=== PATIENT | female | born 1980 | race Caucasian/White ===

== ENCOUNTER → 2018-10-08 08:51 | Outpatient (CLI) | payer OTHER, SELFPAY ==
[2018-10-08 10:17] LABS: Alanine Aminotransferase 26 IU/L (9-52); Albumin 4.6 g/dL (3.5-5.0); Albumin Globulin Ratio 1.4 (1.0-2.8); Alkaline Phosphatase 69 U/L (38-126); Aspartate Aminotransferase 31 IU/L (14-36); BUN Creatinine Ratio 24.3 (6-22); Bilirubin Total 0.5 mg/dL (0.2-1.3); Blood Urea Nitrogen 17 mg/dL (7-17); Calcium 9.2 mg/dL (8.4-10.2); Carbon Dioxide 27 mmol/L (22-32); Chloride 101 mmol/L (98-107); Estimated Glomerular Filt Rate > 60.0 mL/min (>60); Globulin 3.3 g/dL (1.7-4.1); Glucose 85 mg/dL (70-100); HEMOLYSIS < 15 (0-50); Potassium 4.3 mmol/L (3.4-5.1); Sodium 138 mmol/L (137-145); Total Protein 7.9 g/dL (6.3-8.2)
== END ==
PROVIDERS: PCP Family Medicine; Visit Provider Family Medicine
DX: Z83.3 Family history of diabetes mellitus (principal)
CPT/HCPCS: 36415; 80053

== ENCOUNTER 2019-03-18 09:00 | Outpatient (RCR) | payer OTHER, SELFPAY ==
--- NOTE | 2019-01-01 15:34 | PT.OIE ---
Current Diagnoses Stress incontinence (female) (male) (01/01/19) Past Medical History (Last Updated 10/27/18 @ 09:01 by Ne Mujica DO) Anxiety (Chronic 2014) Hearing loss (Chronic 2015) Tinnitus (Chronic 2015) Chlamydia (Resolved 1998) Genital warts (Resolved 1999) Gestational diabetes (Resolved 2008) Spontaneous vaginal delivery (Resolved) Past Surgical History (Last Reviewed 10/27/18 @ 09:01 by Ne Mujica DO) No history of previous surgery (Resolved 06/25/16) Provider Visit Care Team Role Provider Type Ne Mujica DO Attending Provider Physician Primary Care Provider Specialty: [facility] Address: [address] [place] [address] Email: [email or web address] Physical Therapy Initial Evaluation PT-OP-A Visit Information Start: 01/01/19 06:56 Freq: Status: Active Protocol: Document 01/01/19 13:00 AMB (Rec: 01/01/19 13:15 AMB [id number]) Out-Patient Physical Therapy Visit Information Visit Information Visit Type Initial Evaluation Visit Start Time 13:00 Visit Stop Time 13:44 Total Visit Minutes 44 Visit Number 1 PT-OP-B Current Condition Start: 01/01/19 06:56 Freq: Status: Active Protocol: Document 01/01/19 13:00 AMB (Rec: 01/01/19 13:15 AMB [id number]) Current Condition History of Current Condition Onset Date 2005 Current Complaints leaking urine with running jumping, sneezing History of Current Condition Marilee had her first vaginal delivery in 2005 and had an episiotomy. She had twins in 2008 and also had an episiotomy then. She noticed leaking with running downhill afterward her first delivery and 2 years ago really noticed leaking when she started exercising more. Denies urgency, feeling of falling out, UTI, has maybe a little painful intercourse but it is intermittent. Otherwise feels healthy. Treatment Goals Patient/Caregiver Goals exercise without leaking urine Prior Functional Status Baseline Function- Recreation/Hobbies prior to having children pt was able to exercise without leaking Current Functional Impairments (Reported) Functional Limitations- Recreation/ unable to exercise without Hobbies leaking urine PT-OP-C Subjective Start: 01/01/19 06:56 Freq: Status: Active Protocol: Document 01/01/19 13:00 AMB (Rec: 01/01/19 15:18 AMB [email or web address]) Patient Questionnaires Pelvic Pain and Urgency/Frequency Patient Symptom Scale Pelvic Pain Score 2 PT-OP-I Pelvic Floor Start: 01/01/19 06:56 Freq: Status: Active Protocol: Document 01/01/19 13:00 AMB (Rec: 01/01/19 15:18 AMB [email or web address]) Pelvic Floor Assessment Urine Pelvic Floor Surgery No Leakage Size Large Leakage Cause Cough Exercise Lifting Sneeze Other Leakage Causes with workout leak is large enough to soak maxi pad and then some. Jump rope, running , trampoline are all a problem . Leaks Per Day 10/month Voiding Frequency 6x/day Nocturia 1 Urine Pad Type Maxi Pad Prolapse Cystocele Grade 1 Rectocele Grade 1 SEMG (uV) Baseline 2.6 Quick Contraction 10 10 Second Contraction 5.9 Recruitment Pattern Fair Relaxation Fair Stability of Hold Poor/Slow Contraction Ability Voluntary Contraction Weak Voluntary Relaxation Weak Manual Muscle Testing Left 2 Manual Muscle Testing Right 2 Manual Muscle Testing Anterior 2 Manual Muscle Testing Posterior 3 PT-OP-Q Treatments Start: 01/01/19 06:56 Freq: Status: Active Protocol: Document 01/01/19 13:00 AMB (Rec: 01/01/19 15:33 AMB [email or web address]) Neuro Re-Education Treatment Other Activities 1 Details sEMG quick flicks and long holds Comments instruction in breathing PT-OP-T Assessment and Plan Start: 01/01/19 06:56 Freq: Status: Active Protocol: Document 01/01/19 13:00 AMB (Rec: 01/01/19 15:33 AMB [email or web address]) Physical Therapy Assessment Evaluation Complexity Number of Personal Factors/Comorbidities 0 Number of Body Systems Impaired 1-2 Clinical Presentation at Evaluation Stable Impairments Impairments Functional Activities Strength Goals Two Impairment pelvic floor strength Short Term Goal (STG) Marilee will be able to contract pelvic floor for 10 seconds in standing without compensating with her gluteals. STG Duration 4 weeks Kayak Maker Goal (LTG) Marilee will increase her pelvic floor strength to 4/5 in all planes. LTG Duration 10 weeks One Impairment continence Short Term Goal (STG) Marilee will be able to jog for 10 minutes without leaking. STG Duration 5 weeks Kayak Maker Goal (LTG) Marilee will be able to cough/ sneeze without leaking. LTG Duration 10 weeks Assessment Summary Assessment Marilee attends physical therapy with stress urinary incontinence. She was able to perform a pelvic floor contraction fairly well, but her endurance was poor (only able to hold for 1-2 seconds with good strength). She tended to use her posterior muscles more and did not engage anterior pelvic floor. She will benefit from physical therapy given her high level of strength that her pelvic floor will need to attain for her to be continent . Physical Therapy Plan Frequency and Duration Frequency of Treatment 1x/Week Duration of Treatment 10 weeks Plan of Care Start Date 01/01/19 Plan of Care End Date 03/12/19 Therapeutic Interventions Therapeutic Interventions Home Exercise Program Manual Therapy Neuromuscular Re-education Self-Care/Home Management Therapeutic Activities Therapeutic Exercises Modalities Biofeedback Electric Stimulation Next Visit Focus/Plan Next Note Type Treatment Note Next Visit Plan continue with sEMG, progress into standing as tolerated
--- NOTE | 2019-01-01 15:35 | PT.OPPOC ---
Current Diagnoses Stress incontinence (female) (male) (01/01/19) Provider Visit Care Team Role Provider Type Ne Mujica DO Attending Provider Physician Primary Care Provider Specialty: [facility] Address: [address] [place] [address], [id number] Email: [email or web address] PT-OP-T Assessment and Plan Start: 01/01/19 06:56 Freq: Status: Active Protocol: Document 01/01/19 13:00 AMB (Rec: 01/01/19 15:33 AMB [email or web address]) Physical Therapy Assessment Evaluation Complexity Number of Personal Factors/Comorbidities 0 Number of Body Systems Impaired 1-2 Clinical Presentation at Evaluation Stable Impairments Impairments Functional Activities Strength Goals Two Impairment pelvic floor strength Short Term Goal (STG) Marilee will be able to contract pelvic floor for 10 seconds in standing without compensating with her gluteals. STG Duration 4 weeks Manager Application Development Goal (LTG) Marilee will increase her pelvic floor strength to 4/5 in all planes. LTG Duration 10 weeks One Impairment continence Short Term Goal (STG) Marilee will be able to jog for 10 minutes without leaking. STG Duration 5 weeks Mcc Goal (LTG) Marilee will be able to cough/ sneeze without leaking. LTG Duration 10 weeks Assessment Summary Assessment Marilee attends physical therapy with stress urinary incontinence. She was able to perform a pelvic floor contraction fairly well, but her endurance was poor (only able to hold for 1-2 seconds with good strength). She tended to use her posterior muscles more and did not engage anterior pelvic floor. She will benefit from physical therapy given her high level of strength that her pelvic floor will need to attain for her to be continent . Physical Therapy Plan Frequency and Duration Frequency of Treatment 1x/Week Duration of Treatment 10 weeks Plan of Care Start Date 01/01/19 Plan of Care End Date 03/12/19 Therapeutic Interventions Therapeutic Interventions Home Exercise Program Manual Therapy Neuromuscular Re-education Self-Care/Home Management Therapeutic Activities Therapeutic Exercises Modalities Biofeedback Electric Stimulation Next Visit Focus/Plan Next Note Type Treatment Note Next Visit Plan continue with sEMG, progress into standing as tolerated Plan of Care Dates Plan of Care Start Date 01/01/19 Plan of Care End Date 03/12/19 Please Sign and Return: I have reviewed this Plan of Care and certify that the skilled therapy services above are required to meet the patient?s needs. Physician Signature Date Printed Name and Credentials Clinical Instructor Signature Printed Name and Credentials
--- NOTE | 2019-01-07 16:43 | PT.OTN ---
Current Diagnoses Stress incontinence (female) (male) (01/07/19) Physical Therapy Treatment Note PT-OP-A Visit Information Start: 01/01/19 06:56 Freq: Status: Active Protocol: Document 01/07/19 13:45 AMB (Rec: 01/07/19 16:41 AMB [email or web address]) Out-Patient Physical Therapy Visit Information Visit Information Visit Type Treatment Note Visit Start Time 13:00 Visit Stop Time 13:46 Total Visit Minutes 46 Visit Number 2 PT-OP-B Current Condition Start: 01/01/19 06:56 Freq: Status: Active Protocol: Document 01/01/19 13:00 AMB (Rec: 01/01/19 13:15 AMB [id number]) Current Condition History of Current Condition Onset Date 2005 Current Complaints leaking urine with running jumping, sneezing History of Current Condition Marilee had her first vaginal delivery in 2005 and had an episiotomy. She had twins in 2008 and also had an episiotomy then. She noticed leaking with running downhill afterward her first delivery and 2 years ago really noticed leaking when she started exercising more. Denies urgency, feeling of falling out, UTI, has maybe a little painful intercourse but it is intermittent. Otherwise feels healthy. Treatment Goals Patient/Caregiver Goals exercise without leaking urine Prior Functional Status Baseline Function- Recreation/Hobbies prior to having children pt was able to exercise without leaking Current Functional Impairments (Reported) Functional Limitations- Recreation/ unable to exercise without Hobbies leaking urine PT-OP-C Subjective Start: 01/01/19 06:56 Freq: Status: Active Protocol: Document 01/07/19 13:45 AMB (Rec: 01/07/19 16:41 AMB [email or web address]) OP-PT Subjective Patient Comments Patient Comments Pt is continuing to notice leaking with exercise, but has not really tried to contract pelvic floor while exercising because it is so hard. PT-OP-I Pelvic Floor Start: 01/01/19 06:56 Freq: Status: Active Protocol: Document 01/01/19 13:00 AMB (Rec: 01/01/19 15:18 AMB [email or web address]) Pelvic Floor Assessment Urine Pelvic Floor Surgery No Leakage Size Large Leakage Cause Cough Exercise Lifting Sneeze Other Leakage Causes with workout leak is large enough to soak maxi pad and then some. Jump rope, running , trampoline are all a problem . Leaks Per Day 10/month Voiding Frequency 6x/day Nocturia 1 Urine Pad Type Maxi Pad Prolapse Cystocele Grade 1 Rectocele Grade 1 SEMG (uV) Baseline 2.6 Quick Contraction 10 10 Second Contraction 5.9 Recruitment Pattern Fair Relaxation Fair Stability of Hold Poor/Slow Contraction Ability Voluntary Contraction Weak Voluntary Relaxation Weak Manual Muscle Testing Left 2 Manual Muscle Testing Right 2 Manual Muscle Testing Anterior 2 Manual Muscle Testing Posterior 3 PT-OP-Q Treatments Start: 01/01/19 06:56 Freq: Status: Active Protocol: Document 01/07/19 13:45 AMB (Rec: 01/07/19 16:41 AMB [email or web address]) Therapeutic Exercises Supine Exercises 1 Supine Exercise Name roll in roll out Resistance #2 t band Reps/Minutes 2x10 Standing Exercises 2 Standing Exercise Name long hold with squat Reps/Minutes 10x1 1 Standing Exercise Name quick flicks Comments varied foot position, WBOS and modified tandem Neuro Re-Education Treatment Other Activities 1 Details sEMG quick flicks and long holds Comments instruction in breathing PT-OP-T Assessment and Plan Start: 01/01/19 06:56 Freq: Status: Active Protocol: Document 01/07/19 13:45 AMB (Rec: 01/07/19 16:41 AMB [email or web address]) Physical Therapy Assessment Assessment Summary Assessment Marilee did well with standing exercises, but stabilization with movement was challenging both squats and roll in/roll out. Physical Therapy Plan Next Visit Focus/Plan Next Note Type Treatment Note Next Visit Plan continue with sEMG, progress into standing as tolerated
--- NOTE | 2019-02-11 10:41 | PT.OTN ---
Current Diagnoses Stress incontinence (female) (male) (02/11/19) Physical Therapy Treatment Note PT-OP-A Visit Information Start: 01/01/19 06:56 Freq: Status: Active Protocol: Document 02/11/19 09:30 AMB (Rec: 02/11/19 10:41 AMB [email or web address]) Out-Patient Physical Therapy Visit Information Visit Information Visit Type Treatment Note Visit Start Time 09:30 Visit Stop Time 10:15 Total Visit Minutes 45 Visit Number 3 PT-OP-B Current Condition Start: 01/01/19 06:56 Freq: Status: Active Protocol: Document 01/01/19 13:00 AMB (Rec: 01/01/19 13:15 AMB [id number]) Current Condition History of Current Condition Onset Date 2005 Current Complaints leaking urine with running jumping, sneezing History of Current Condition Marilee had her first vaginal delivery in 2005 and had an episiotomy. She had twins in 2008 and also had an episiotomy then. She noticed leaking with running downhill afterward her first delivery and 2 years ago really noticed leaking when she started exercising more. Denies urgency, feeling of falling out, UTI, has maybe a little painful intercourse but it is intermittent. Otherwise feels healthy. Treatment Goals Patient/Caregiver Goals exercise without leaking urine Prior Functional Status Baseline Function- Recreation/Hobbies prior to having children pt was able to exercise without leaking Current Functional Impairments (Reported) Functional Limitations- Recreation/ unable to exercise without Hobbies leaking urine PT-OP-C Subjective Start: 01/01/19 06:56 Freq: Status: Active Protocol: Document 02/11/19 09:30 AMB (Rec: 02/11/19 10:41 AMB [email or web address]) OP-PT Subjective Patient Comments Patient Comments Pt has been working on pelvic floor exercises, but feels it is difficult after about 5 seconds. She has noticed that she continues to leak especially towards the end of a set of heavy lifting, but she is not leaking the same quantity. PT-OP-I Pelvic Floor Start: 01/01/19 06:56 Freq: Status: Active Protocol: Document 01/01/19 13:00 AMB (Rec: 01/01/19 15:18 AMB [email or web address]) Pelvic Floor Assessment Urine Pelvic Floor Surgery No Leakage Size Large Leakage Cause Cough,Exercise,Lifting,Sneeze Other Leakage Causes with workout leak is large enough to soak maxi pad and then some. Jump rope, running , trampoline are all a problem . Leaks Per Day 10/month Voiding Frequency 6x/day Nocturia 1 Urine Pad Type Maxi Pad Prolapse Cystocele Grade 1 Rectocele Grade 1 SEMG (uV) Baseline 2.6 Quick Contraction 10 10 Second Contraction 5.9 Recruitment Pattern Fair Relaxation Fair Stability of Hold Poor/Slow Contraction Ability Voluntary Contraction Weak Voluntary Relaxation Weak Manual Muscle Testing Left 2 Manual Muscle Testing Right 2 Manual Muscle Testing Anterior 2 Manual Muscle Testing Posterior 3 PT-OP-Q Treatments Start: 01/01/19 06:56 Freq: Status: Active Protocol: Document 02/11/19 09:30 AMB (Rec: 02/11/19 10:41 AMB [email or web address]) Therapeutic Exercises Supine Exercises 2 Supine Exercise Name bridge Reps/Minutes 2x20 Standing Exercises 3 Standing Exercise Name long hold with lunge Reps/Minutes 10x1 2 Standing Exercise Name long hold with squat Reps/Minutes 10x1 1 Standing Exercise Name quick flicks Comments varied foot position, WBOS and modified tandem Other Exercises 2 Other Exercise Name quadruped UE flex with PF Reps/Minutes 10x2 1 Other Exercise Name quadruped LE ext with PF Comments difficult Neuro Re-Education Treatment Other Activities 1 Details sEMG quick flicks and long holds Comments instruction in breathing PT-OP-T Assessment and Plan Start: 01/01/19 06:56 Freq: Status: Active Protocol: Document 02/11/19 09:30 AMB (Rec: 02/11/19 10:41 AMB [email or web address]) Physical Therapy Assessment Assessment Summary Assessment Marilee tolerated squats and lunges better today. Increased muscle activity with biofeedback significantly to max 25, avg 10, baseline 1.5. Encouraged her to add pelvic floor contraction into every day activities. Physical Therapy Plan Next Visit Focus/Plan Next Note Type Treatment Note Next Visit Plan continue with sEMG, progress into standing as tolerated
--- NOTE | 2019-02-18 16:08 | PT.OTN ---
Current Diagnoses Stress incontinence (female) (male) (02/18/19) Physical Therapy Treatment Note PT-OP-A Visit Information Start: 01/01/19 06:56 Freq: Status: Active Protocol: Document 02/18/19 10:15 AMB (Rec: 02/18/19 16:08 AMB [email or web address]) Out-Patient Physical Therapy Visit Information Visit Information Visit Type Treatment Note Visit Start Time 10:15 Visit Stop Time 11:00 Total Visit Minutes 45 Visit Number 4 PT-OP-B Current Condition Start: 01/01/19 06:56 Freq: Status: Active Protocol: Document 01/01/19 13:00 AMB (Rec: 01/01/19 13:15 AMB [id number]) Current Condition History of Current Condition Onset Date 2005 Current Complaints leaking urine with running jumping, sneezing History of Current Condition Marilee had her first vaginal delivery in 2005 and had an episiotomy. She had twins in 2008 and also had an episiotomy then. She noticed leaking with running downhill afterward her first delivery and 2 years ago really noticed leaking when she started exercising more. Denies urgency, feeling of falling out, UTI, has maybe a little painful intercourse but it is intermittent. Otherwise feels healthy. Treatment Goals Patient/Caregiver Goals exercise without leaking urine Prior Functional Status Baseline Function- Recreation/Hobbies prior to having children pt was able to exercise without leaking Current Functional Impairments (Reported) Functional Limitations- Recreation/ unable to exercise without Hobbies leaking urine PT-OP-C Subjective Start: 01/01/19 06:56 Freq: Status: Active Protocol: Document 02/18/19 10:15 AMB (Rec: 02/18/19 16:08 AMB [email or web address]) OP-PT Subjective Patient Comments Patient Comments Pt is noticing an improvement in her long hold ability, she has not noticed any leaking with weight lifting, but is taking it slightly easy due to her shoulder and foot pain. PT-OP-I Pelvic Floor Start: 01/01/19 06:56 Freq: Status: Active Protocol: Document 01/01/19 13:00 AMB (Rec: 01/01/19 15:18 AMB [email or web address]) Pelvic Floor Assessment Urine Pelvic Floor Surgery No Leakage Size Large Leakage Cause Cough,Exercise,Lifting,Sneeze Other Leakage Causes with workout leak is large enough to soak maxi pad and then some. Jump rope, running , trampoline are all a problem . Leaks Per Day 10/month Voiding Frequency 6x/day Nocturia 1 Urine Pad Type Maxi Pad Prolapse Cystocele Grade 1 Rectocele Grade 1 SEMG (uV) Baseline 2.6 Quick Contraction 10 10 Second Contraction 5.9 Recruitment Pattern Fair Relaxation Fair Stability of Hold Poor/Slow Contraction Ability Voluntary Contraction Weak Voluntary Relaxation Weak Manual Muscle Testing Left 2 Manual Muscle Testing Right 2 Manual Muscle Testing Anterior 2 Manual Muscle Testing Posterior 3 PT-OP-Q Treatments Start: 01/01/19 06:56 Freq: Status: Active Protocol: Document 02/18/19 10:15 AMB (Rec: 02/18/19 16:08 AMB [email or web address]) Therapeutic Exercises Supine Exercises 2 Supine Exercise Name bridge Reps/Minutes 2x20 Standing Exercises 4 Standing Exercise Name 10# lift with PF contract Comments 10 3 Standing Exercise Name long hold with lunge Reps/Minutes 10x1 2 Standing Exercise Name long hold with squat Reps/Minutes 10x1 1 Standing Exercise Name quick flicks Comments varied foot position, WBOS and modified tandem PT-OP-T Assessment and Plan Start: 01/01/19 06:56 Freq: Status: Active Protocol: Document 02/18/19 10:15 AMB (Rec: 02/18/19 16:08 AMB [email or web address]) Physical Therapy Assessment Assessment Summary Assessment Marilee continues to improve, although lunges are still hard , any positions with a WBOS are more difficult, but she doesn't really lift that way. Physical Therapy Plan Next Visit Focus/Plan Next Note Type Treatment Note Next Visit Plan continue with sEMG, progress into standing as tolerated
--- NOTE | 2019-03-04 11:37 | PT.OTN ---
Current Diagnoses Stress incontinence (female) (male) (03/04/19) Physical Therapy Treatment Note PT-OP-A Visit Information Start: 01/01/19 06:56 Freq: Status: Active Protocol: Document 03/04/19 11:24 AMB (Rec: 03/04/19 11:33 AMB [email or web address]) Out-Patient Physical Therapy Visit Information Visit Information Visit Type Treatment Note Visit Start Time 10:30 Visit Stop Time 11:15 Total Visit Minutes 45 Visit Number 5 PT-OP-B Current Condition Start: 01/01/19 06:56 Freq: Status: Active Protocol: Document 01/01/19 13:00 AMB (Rec: 01/01/19 13:15 AMB [id number]) Current Condition History of Current Condition Onset Date 2005 Current Complaints leaking urine with running jumping, sneezing History of Current Condition Marilee had her first vaginal delivery in 2005 and had an episiotomy. She had twins in 2008 and also had an episiotomy then. She noticed leaking with running downhill afterward her first delivery and 2 years ago really noticed leaking when she started exercising more. Denies urgency, feeling of falling out, UTI, has maybe a little painful intercourse but it is intermittent. Otherwise feels healthy. Treatment Goals Patient/Caregiver Goals exercise without leaking urine Prior Functional Status Baseline Function- Recreation/Hobbies prior to having children pt was able to exercise without leaking Current Functional Impairments (Reported) Functional Limitations- Recreation/ unable to exercise without Hobbies leaking urine PT-OP-C Subjective Start: 01/01/19 06:56 Freq: Status: Active Protocol: Document 03/04/19 11:24 AMB (Rec: 03/04/19 11:33 AMB [email or web address]) OP-PT Subjective Patient Comments Patient Comments Pt noticed leaking with max lift (150#) deep squat, and with jump rope PT-OP-I Pelvic Floor Start: 01/01/19 06:56 Freq: Status: Active Protocol: Document 01/01/19 13:00 AMB (Rec: 01/01/19 15:18 AMB [email or web address]) Pelvic Floor Assessment Urine Pelvic Floor Surgery No Leakage Size Large Leakage Cause Cough,Exercise,Lifting,Sneeze Other Leakage Causes with workout leak is large enough to soak maxi pad and then some. Jump rope, running , trampoline are all a problem . Leaks Per Day 10/month Voiding Frequency 6x/day Nocturia 1 Urine Pad Type Maxi Pad Prolapse Cystocele Grade 1 Rectocele Grade 1 SEMG (uV) Baseline 2.6 Quick Contraction 10 10 Second Contraction 5.9 Recruitment Pattern Fair Relaxation Fair Stability of Hold Poor/Slow Contraction Ability Voluntary Contraction Weak Voluntary Relaxation Weak Manual Muscle Testing Left 2 Manual Muscle Testing Right 2 Manual Muscle Testing Anterior 2 Manual Muscle Testing Posterior 3 PT-OP-Q Treatments Start: 01/01/19 06:56 Freq: Status: Active Protocol: Document 03/04/19 11:24 AMB (Rec: 03/04/19 11:33 AMB [email or web address]) Therapeutic Exercises Standing Exercises 4 Standing Exercise Name 20# lift with PF contract Comments varied- box lift/ squat, 2 10# bar bells, focus on breathing 3 Standing Exercise Name plyometrics Comments jumping jacks vs jump rope PT-OP-T Assessment and Plan Start: 01/01/19 06:56 Freq: Status: Active Protocol: Document 03/04/19 11:24 AMB (Rec: 03/04/19 11:33 AMB [email or web address]) Physical Therapy Assessment Assessment Summary Assessment Marilee is having a difficult time coordinating pelvic floor with plyometrics .She is fatiguing by the end of her jump rope, so encouraged her to take more breaks for now so that she can remain continent Physical Therapy Plan Next Visit Focus/Plan Next Note Type Treatment Note Next Visit Plan Progress resisted lifting with pelvic floor, as well as breathing
--- NOTE | 2019-03-18 12:00 | PT.OTN ---
Current Diagnoses Stress incontinence (female) (male) (03/18/19) Physical Therapy Treatment Note PT-OP-A Visit Information Start: 01/01/19 06:56 Freq: Status: Active Protocol: Document 03/18/19 09:00 AMB (Rec: 03/18/19 09:46 AMB [id number]) Out-Patient Physical Therapy Visit Information Visit Information Visit Type Treatment Note Visit Start Time 09:00 Visit Stop Time 09:30 Total Visit Minutes 30 Visit Number 6 PT-OP-B Current Condition Start: 01/01/19 06:56 Freq: Status: Active Protocol: Document 01/01/19 13:00 AMB (Rec: 01/01/19 13:15 AMB [id number]) Current Condition History of Current Condition Onset Date 2005 Current Complaints leaking urine with running jumping, sneezing History of Current Condition Marilee had her first vaginal delivery in 2005 and had an episiotomy. She had twins in 2008 and also had an episiotomy then. She noticed leaking with running downhill afterward her first delivery and 2 years ago really noticed leaking when she started exercising more. Denies urgency, feeling of falling out, UTI, has maybe a little painful intercourse but it is intermittent. Otherwise feels healthy. Treatment Goals Patient/Caregiver Goals exercise without leaking urine Prior Functional Status Baseline Function- Recreation/Hobbies prior to having children pt was able to exercise without leaking Current Functional Impairments (Reported) Functional Limitations- Recreation/ unable to exercise without Hobbies leaking urine PT-OP-C Subjective Start: 01/01/19 06:56 Freq: Status: Active Protocol: Document 03/18/19 09:00 AMB (Rec: 03/18/19 09:46 AMB [id number]) OP-PT Subjective Patient Comments Patient Comments Pt can lift most of the time without leaking. She does notice more of an issue when she is on her period (she does not use tampons). PT-OP-I Pelvic Floor Start: 01/01/19 06:56 Freq: Status: Active Protocol: Document 01/01/19 13:00 AMB (Rec: 01/01/19 15:18 AMB [id number]) Pelvic Floor Assessment Urine Pelvic Floor Surgery No Leakage Size Large Leakage Cause Cough,Exercise,Lifting,Sneeze Other Leakage Causes with workout leak is large enough to soak maxi pad and then some. Jump rope, running , trampoline are all a problem . Leaks Per Day 10/month Voiding Frequency 6x/day Nocturia 1 Urine Pad Type Maxi Pad Prolapse Cystocele Grade 1 Rectocele Grade 1 SEMG (uV) Baseline 2.6 Quick Contraction 10 10 Second Contraction 5.9 Recruitment Pattern Fair Relaxation Fair Stability of Hold Poor/Slow Contraction Ability Voluntary Contraction Weak Voluntary Relaxation Weak Manual Muscle Testing Left 2 Manual Muscle Testing Right 2 Manual Muscle Testing Anterior 2 Manual Muscle Testing Posterior 3 PT-OP-Q Treatments Start: 01/01/19 06:56 Freq: Status: Active Protocol: Document 03/18/19 09:00 AMB (Rec: 03/20/19 07:49 AMB [id number]) Therapeutic Exercises Standing Exercises 4 Standing Exercise Name 20# lift with PF contract Comments varied- box lift/ squat, 2 10# bar bells, focus on breathing 3 Standing Exercise Name plyometrics Comments jumping jacks vs jump rope 2 Standing Exercise Name long hold with squat Reps/Minutes 10x1 1 Standing Exercise Name quick flicks Comments varied foot position, WBOS and modified tandem PT-OP-T Assessment and Plan Start: 01/01/19 06:56 Freq: Status: Active Protocol: Document 03/18/19 09:00 AMB (Rec: 03/20/19 07:49 AMB [id number]) Physical Therapy Assessment Goals Two Impairment pelvic floor strength Short Term Goal (STG) Marilee will be able to contract pelvic floor for 10 seconds in standing without compensating with her gluteals. STG Duration MET Group Home Goal (LTG) Marilee will increase her pelvic floor strength to 4/5 in all planes. LTG Duration MET One Impairment continence Short Term Goal (STG) Marilee will be able to jog for 10 minutes without leaking. STG Duration MET Pediatric Pathologist Goal (LTG) Marilee will be able to cough/ sneeze without leaking. LTG Duration MET Assessment Summary Assessment Marilee feels ready to be discharged at this time. She still needs to be mindful of her pelvic floor, especially when she is menstruating, when lifting heavy. Otherwise she feels she is much better than when she started PT. 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 Physical Therapy Plan Discharge Physical Therapy Discharge Reasons Goals Met
--- NOTE | 2019-03-18 12:00 | PT.OPPOC ---
Current Diagnoses Stress incontinence (female) (male) (03/18/19) Visit Care Team Role Provider Type Ne Mujica DO Attending Provider Physician Primary Care Provider Specialty: [facility] Address: [address] [place] [address], [facility], [place], [address] Email: [email or web address] Plan Of Care PT-OP-T Assessment and Plan Start: 01/01/19 06:56 Freq: Status: Active Protocol: Document 03/18/19 09:00 AMB (Rec: 03/20/19 07:49 AMB [id number]) Physical Therapy Assessment Goals Two Impairment pelvic floor strength Short Term Goal (STG) Marilee will be able to contract pelvic floor for 10 seconds in standing without compensating with her gluteals. STG Duration MET Engineer Automated Equipment Goal (LTG) Marilee will increase her pelvic floor strength to 4/5 in all planes. LTG Duration MET One Impairment continence Short Term Goal (STG) Marilee will be able to jog for 10 minutes without leaking. STG Duration MET Engineer Automated Equipment Goal (LTG) Marilee will be able to cough/ sneeze without leaking. LTG Duration MET Assessment Summary Assessment Marilee feels ready to be discharged at this time. She still needs to be mindful of her pelvic floor, especially when she is menstruating, when lifting heavy. Otherwise she feels she is much better than when she started PT. 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 Physical Therapy Plan Frequency and Duration Frequency of Treatment 1x/Week Duration of Treatment 1 week Plan of Care Start Date 03/12/19 Plan of Care End Date 03/19/19 Therapeutic Interventions Therapeutic Interventions Home Exercise Program,Manual Therapy,Neuromuscular Re- education,Self-Care/Home Management,Therapeutic Activities,Therapeutic Exercises Modalities Biofeedback,Electric Stimulation Discharge Physical Therapy Discharge Reasons Goals Met Plan of Care Dates Plan of Care Start Date 03/12/19 Plan of Care End Date 03/19/19
--- NOTE | 2019-03-20 07:50 | PT.OPDS ---
Current Diagnoses Stress incontinence (female) (male) (03/18/19) Visit Care Team Role Provider Type Ne Mujica DO Attending Provider Physician Primary Care Provider Specialty: [facility] Address: [address] [place] [address], [facility], [place], [address] Email: [email or web address] Visit Number Visit Number 6 Discharge Summary PT-OP-B Current Condition Start: 01/01/19 06:56 Freq: Status: Active Protocol: Document 01/01/19 13:00 AMB (Rec: 01/01/19 13:15 AMB [id number]) Current Condition History of Current Condition Onset Date 2005 Current Complaints leaking urine with running jumping, sneezing History of Current Condition Marilee had her first vaginal delivery in 2005 and had an episiotomy. She had twins in 2008 and also had an episiotomy then. She noticed leaking with running downhill afterward her first delivery and 2 years ago really noticed leaking when she started exercising more. Denies urgency, feeling of falling out, UTI, has maybe a little painful intercourse but it is intermittent. Otherwise feels healthy. Treatment Goals Patient/Caregiver Goals exercise without leaking urine Prior Functional Status Baseline Function- Recreation/Hobbies prior to having children pt was able to exercise without leaking Current Functional Impairments (Reported) Functional Limitations- Recreation/ unable to exercise without Hobbies leaking urine PT-OP-C Subjective Start: 01/01/19 06:56 Freq: Status: Active Protocol: Document 03/18/19 09:00 AMB (Rec: 03/18/19 09:46 AMB [id number]) OP-PT Subjective Patient Comments Patient Comments Pt can lift most of the time without leaking. She does notice more of an issue when she is on her period (she does not use tampons). PT-OP-I Pelvic Floor Start: 01/01/19 06:56 Freq: Status: Active Protocol: Document 01/01/19 13:00 AMB (Rec: 01/01/19 15:18 AMB [id number]) Pelvic Floor Assessment Urine Pelvic Floor Surgery No Leakage Size Large Leakage Cause Cough,Exercise,Lifting,Sneeze Other Leakage Causes with workout leak is large enough to soak maxi pad and then some. Jump rope, running , trampoline are all a problem . Leaks Per Day 10/month Voiding Frequency 6x/day Nocturia 1 Urine Pad Type Maxi Pad Prolapse Cystocele Grade 1 Rectocele Grade 1 SEMG (uV) Baseline 2.6 Quick Contraction 10 10 Second Contraction 5.9 Recruitment Pattern Fair Relaxation Fair Stability of Hold Poor/Slow Contraction Ability Voluntary Contraction Weak Voluntary Relaxation Weak Manual Muscle Testing Left 2 Manual Muscle Testing Right 2 Manual Muscle Testing Anterior 2 Manual Muscle Testing Posterior 3 PT-OP-T Assessment and Plan Start: 01/01/19 06:56 Freq: Status: Active Protocol: Document 03/18/19 09:00 AMB (Rec: 03/20/19 07:49 AMB [id number]) Physical Therapy Assessment Goals Two Impairment pelvic floor strength Short Term Goal (STG) Marilee will be able to contract pelvic floor for 10 seconds in standing without compensating with her gluteals. STG Duration MET Learning Manager Goal (LTG) Marilee will increase her pelvic floor strength to 4/5 in all planes. LTG Duration MET One Impairment continence Short Term Goal (STG) Marilee will be able to jog for 10 minutes without leaking. STG Duration MET Halfway Goal (LTG) aMrilee will be able to cough/ sneeze without leaking. LTG Duration MET Assessment Summary Assessment Marilee feels ready to be discharged at this time. She still needs to be mindful of her pelvic floor, especially when she is menstruating, when lifting heavy. Otherwise she feels she is much better than when she started PT. 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 Physical Therapy Plan Discharge Physical Therapy Discharge Reasons Goals Met
== END 2019-03-26 12:50 ==
LOC: PHYS 09:00
PROVIDERS: PCP Family Medicine; Visit Provider Family Medicine
DX: N39.3 Stress incontinence (female) (male) (principal)
CPT/HCPCS: 97110; 97112; 97161

== ENCOUNTER → 2020-02-05 09:47 | Outpatient (CLI) | payer OTHER, SELFPAY ==
[2020-02-05 10:53] LABS: BUN Creatinine Ratio 22.4 (6-22); Blood Urea Nitrogen 17 mg/dL (7-17); Calcium 9.3 mg/dL (8.4-10.2); Carbon Dioxide 29 mmol/L (22-32); Chloride 104 mmol/L (98-107); Estimated Glomerular Filt Rate > 60.0 mL/min (>60); Glucose 88 mg/dL (70-100); HEMOLYSIS < 15 (0-50); Sodium 140 mmol/L (137-145)
== END ==
PROVIDERS: PCP Family Medicine; Referring Provider Family Medicine; Visit Provider Family Medicine
DX: Z86.32 Personal history of gestational diabetes (principal)
CPT/HCPCS: 36415; 80048

== ENCOUNTER → 2022-02-15 10:42 | Outpatient (CLI) | payer OTHER, SELFPAY ==
--- NOTE | 2022-02-15 10:45 | DI.MG.S_ITS ---
BILATERAL DIGITAL DIAGNOSTIC MAMMOGRAM 3D/2D: 02/15/2022 CLINICAL: Right breast pain. Baseline exam. No prior exams were available for comparison. Both breasts are heterogeneously dense, which may obscure small masses (category c / 51-75% glandular tissue). No significant masses, calcifications, or other findings are seen in either breast. IMPRESSION: NEGATIVE There is no abnormality seen in the right breast to correspond with the area of clinical concern seen on thermography in the upper aspect which likely represents normal fibroglandular tissue. There is no mammographic evidence of malignancy. Return to annual mammogram screening schedule is recommended. Based on the Tyrer Cuzick model (a risk assessment model) the patient's lifetime risk is 9.8% and her 10 year risk is 1.5%. According to the ACR, ACS, and NCCN guidelines, an annual breast MRI exam along with mammogram is recommended if the patient's lifetime risk is 20% or greater. This exam was interpreted at Station ID: [id number]. NOTE: For mammograms, a report in lay terms will be sent to the patient. Approximately 15% of breast malignancies will not be visualized mammographically. In the management of a palpable breast mass, a negative mammogram must not discourage biopsy of a clinically suspicious lesion. Electronically Signed By: Franco suazo/:02/15/2022 11:55:13 Entry: - 02/16/2022 12:16:01 letter sent: Normal Exam ACR BI-RADS Category 1: Negative [id number]
== END ==
PROVIDERS: PCP Family Medicine; Referring Provider Family Medicine; Visit Provider Family Medicine
DX: R92.8 Other abnormal and inconclusive findings on diagnostic imaging of breast (principal); N64.4 Mastodynia
CPT/HCPCS: 77066; G0279

== ENCOUNTER → 2022-03-17 11:42 | Outpatient (CLI) | payer OTHER, SELFPAY ==
[2022-03-17 13:10] LABS: Add Manual Diff / Slide Review NO; Basophils Absolute Auto 0 /uL (0-100); Basophils Percent Auto 0.6 % (0-2); Eosinophils Absolute Auto 200 /uL (0-450); Eosinophils Percent Auto 4.3 % (2-4); Hematocrit 40.7 % (36-46); Hemoglobin 13.9 g/dL (12.0-16.0); Lymphocytes Absolute Auto 1600 /uL (1100-4500); Lymphocytes Percent Auto 40.2 % (25-40); Mean Corpuscular HGB Conc 34.2 % (30-36); Mean Corpuscular Hemoglobin 31.4 PG (26-34); Mean Corpuscular Volume 91.9 fL (80-100); Monocytes Absolute Auto 300 /uL (0-900); Monocytes Percent Auto 8.1 % (3-14); Neutrophils Absolute Auto 1900 /uL (1500-7000); Neutrophils Percent Auto 46.8 % (50-75); Platelet Count 175 X10^3/uL (150-400); Red Blood Cell Count 4.43 X10^6/uL (4.0-5.2); Red Cell Distribution Width 12.6 % (11.6-14.8)
[2022-03-17 13:46] LABS: Alanine Aminotransferase 48 IU/L (<35); Albumin 4.3 g/dL (3.5-5.0); Albumin Globulin Ratio 1.3 (1.0-2.8); Alkaline Phosphatase 58 U/L (38-126); Aspartate Aminotransferase 47 IU/L (14-36); BUN Creatinine Ratio 17.1 (6-22); Bilirubin Total 0.3 mg/dL (0.2-1.3); Blood Urea Nitrogen 13 mg/dL (7-17); Calcium 8.9 mg/dL (8.4-10.2); Carbon Dioxide 29 mmol/L (22-32); Chloride 103 mmol/L (98-107); Cholesterol 173 mg/dL (140-199); Estimated Glomerular Filt Rate > 60 mL/min (>60); Globulin 3.3 g/dL (1.7-4.1); Glucose 92 mg/dL (70-100); HDL Cholesterol 59 mg/dL (40-60); HEMOLYSIS < 15 (0-50); LDL Cholesterol Calculated 102 mg/dL (<100); Potassium 4.1 mmol/L (3.4-5.1); Sodium 141 mmol/L (137-145); Total Protein 7.6 g/dL (6.3-8.2); Triglycerides 62 mg/dL (35-150)
== END ==
PROVIDERS: PCP Family Medicine; Referring Provider Family Medicine; Visit Provider Family Medicine
DX: Z00.00 Encounter for general adult medical examination without abnormal findings (principal); Z13.1 Encounter for screening for diabetes mellitus; Z13.6 Encounter for screening for cardiovascular disorders
CPT/HCPCS: 36415; 80053; 80061; 84443; 85025

== ENCOUNTER → 2022-05-25 16:32 | Outpatient (CLI) | payer OTHER, SELFPAY ==
[2022-05-25 18:12] LABS: Hemoglobin A1C% w Est Avg Glu 5.4 % (4.0-6.0)
[2022-05-25 18:22] LABS: Alanine Aminotransferase 93 IU/L (<35); Albumin 4.5 g/dL (3.5-5.0); Albumin Globulin Ratio 1.3 (1.0-2.8); Alkaline Phosphatase 59 U/L (38-126); Aspartate Aminotransferase 57 IU/L (14-36); BUN Creatinine Ratio 24.3 (6-22); Bilirubin Total 0.4 mg/dL (0.2-1.3); Blood Urea Nitrogen 18 mg/dL (7-17); Calcium 8.9 mg/dL (8.4-10.2); Carbon Dioxide 27 mmol/L (22-32); Chloride 103 mmol/L (98-107); Estimated Glomerular Filt Rate > 60 mL/min (>60); Globulin 3.4 g/dL (1.7-4.1); Glucose 104 mg/dL (70-100); HEMOLYSIS < 15 (0-50); Potassium 3.8 mmol/L (3.4-5.1); Sodium 138 mmol/L (137-145); Total Protein 7.9 g/dL (6.3-8.2)
[2022-05-25 18:54] LABS: Ferritin 44 ng/mL (6-137)
== END ==
PROVIDERS: PCP Family Medicine; Referring Provider Family Medicine; Visit Provider Family Medicine
DX: L65.9 Nonscarring hair loss, unspecified (principal); R74.01 Elevation of levels of liver transaminase levels; Z83.3 Family history of diabetes mellitus
CPT/HCPCS: 36415; 80053; 82728; 83036

== ENCOUNTER → 2022-06-08 16:11 | Outpatient (CLI) | payer OTHER, SELFPAY ==
--- NOTE | 2022-06-08 16:11 | DI.US.S_ITS ---
PROCEDURE: US ABDOMEN COMPLETE INDICATIONS: TRANSAMINITIS TECHNIQUE: Real-time scanning was performed of the abdominal and retroperitoneal organs, with image documentation. COMPARISON: None. FINDINGS: Liver: Liver is normal in size and homogeneous in echotexture. Gallbladder: No gallstones identified. Normal gallbladder wall. No pericholecystic fluid. Negative sonographic Zamora sign. 4 mm gallbladder polyp. Biliary ducts: Intrahepatic bile ducts are non-dilated. Extrahepatic bile duct caliber measures 4.0 mm. Normal is 6-7 mm or less in diameter, or 10 mm or less post-cholecystectomy. Pancreas: Visualized portions of the pancreas are sonographically normal. Spleen: Spleen is normal in size and homogeneous in echotexture. Kidneys: Kidneys are normal in size and echotexture. Right kidney measures 9.9 cm long; left kidney measures 9.9 cm long. No hydronephrosis or nephrolithiasis. No solid masses. Aorta: Visualized aorta is normal in caliber at less than 3 cm. Iliacs: Proximal common iliac arteries are normal in caliber at less than 2.5 cm. IVC: Intrahepatic inferior vena cava is patent. Miscellaneous: No free abdominal fluid. IMPRESSION: 1. No source for elevated LFTs identified. 2. 4 mm gallbladder polyp. Given the small size, no additional follow-up is warranted. Dictated by: Damaso Cohn Jesus Interpreted: Manish Lockhart MD on 06/08/2022 at 16:54 Transcribed by: MARGO on 06/08/2022 at 16:55 Approved by: Manish Lockhart M.D. on 06/09/2022 at 18:46
== END ==
PROVIDERS: PCP Family Medicine; Referring Provider Family Medicine; Visit Provider Family Medicine
DX: R74.01 Elevation of levels of liver transaminase levels (principal); K82.4 Cholesterolosis of gallbladder
CPT/HCPCS: 76700

== ENCOUNTER → 2022-06-23 11:09 | Outpatient (CLI) | payer OTHER, SELFPAY ==
[2022-06-23 12:31] LABS: Alanine Aminotransferase 23 IU/L (<35); Albumin 4.7 g/dL (3.5-5.0); Albumin Globulin Ratio 1.5 (1.0-2.8); Alkaline Phosphatase 61 U/L (38-126); Aspartate Aminotransferase 30 IU/L (14-36); BUN Creatinine Ratio 16.9 (6-22); Bilirubin Total 0.6 mg/dL (0.2-1.3); Blood Urea Nitrogen 13 mg/dL (7-17); Calcium 9.2 mg/dL (8.4-10.2); Carbon Dioxide 28 mmol/L (22-32); Chloride 100 mmol/L (98-107); Estimated Glomerular Filt Rate > 60 mL/min (>60); Globulin 3.1 g/dL (1.7-4.1); Glucose 89 mg/dL (70-100); HEMOLYSIS < 15 (0-50); Potassium 4.7 mmol/L (3.4-5.1); Sodium 139 mmol/L (137-145); Total Protein 7.8 g/dL (6.3-8.2)
== END ==
PROVIDERS: PCP Family Medicine; Referring Provider Family Medicine; Visit Provider Family Medicine
DX: R74.01 Elevation of levels of liver transaminase levels (principal)
CPT/HCPCS: 36415; 80053

== ENCOUNTER → 2023-06-19 09:35 | Outpatient (CLI) | payer OTHER, SELFPAY ==
[2023-06-19 10:39] LABS: Hemoglobin A1C% w Est Avg Glu 5.5 % (4.0-6.0)
[2023-06-19 10:53] LABS: Cholesterol 170 mg/dL (140-199); HDL Cholesterol 58 mg/dL (40-60); LDL Cholesterol Calculated 96 mg/dL (<100); Triglycerides 79 mg/dL (35-150)
== END ==
LOC: LAB 09:37
PROVIDERS: PCP Family Medicine; Referring Provider Family Medicine; Visit Provider Family Medicine
DX: Z13.6 Encounter for screening for cardiovascular disorders (principal); Z00.00 Encounter for general adult medical examination without abnormal findings; Z83.3 Family history of diabetes mellitus
CPT/HCPCS: 36415; 80061; 83036

== ENCOUNTER → 2023-09-13 14:45 | Outpatient (CLI) | payer OTHER, SELFPAY ==
--- NOTE | 2023-09-13 14:47 | DI.US.S_ITS ---
PROCEDURE: US ABDOMEN COMPLETE INDICATIONS: polyp on gal bladder, possible medulary sponge kidney TECHNIQUE: Real-time scanning was performed of the abdominal and retroperitoneal organs, with image documentation. COMPARISON: [facility], US, US ABDOMEN COMPLETE, 06/08/2022, 16:17. FINDINGS: Liver: Liver is normal in size and homogeneous in echotexture. Gallbladder: No stones or wall thickening. Similar 4 mm gallbladder polyp. New 3 mm gallbladder polyp versus adherent sludge ball. Biliary ducts: Intrahepatic bile ducts are non-dilated. Extrahepatic bile duct caliber measures 6 mm. Normal is 6-7 mm or less in diameter, or 10 mm or less post-cholecystectomy. Pancreas: Visualized portions of the pancreas are sonographically normal. Spleen: Spleen is normal in size and homogeneous in echotexture. Kidneys: Kidneys are normal in size , with medullary sponge kidney pathology. Right kidney measures 11.8 cm long; left kidney measures 9.9 cm long. No hydronephrosis or nephrolithiasis. No solid masses. Aorta: Visualized aorta is normal in caliber at less than 3 cm. Iliacs: Proximal common iliac arteries are normal in caliber at less than 2.5 cm. IVC: Intrahepatic inferior vena cava is patent. Miscellaneous: No free abdominal fluid. IMPRESSION: Medullary sponge kidneys. Right kidney measures 11.8 cm, left kidney measures 9.9 cm. Stable 4 mm gallbladder polyp. New 3 mm gallbladder polyp versus adherent sludge ball. No further dedicated follow-up is indicated per consensus guidelines, and these are statistically benign. Dictated by: Jose Ramirez M.D. on 09/13/2023 at 16:38 Approved by: Jose Ramirez M.D. on 09/13/2023 at 16:40
== END ==
LOC: US 14:46
PROVIDERS: PCP Family Medicine; Referring Provider Family Medicine; Visit Provider Family Medicine
DX: K82.4 Cholesterolosis of gallbladder (principal); Q61.5 Medullary cystic kidney
CPT/HCPCS: 76700

== ENCOUNTER → 2024-07-10 10:07 | Outpatient (CLI) | payer OTHER, SELFPAY ==
[2024-07-10 10:45] LABS: Add Manual Diff / Slide Review NO; Basophils Absolute Auto 0 /uL (0-100); Eosinophils Absolute Auto 100 /uL (0-450); Eosinophils Percent Auto 3.2 % (2-4); Hematocrit 44.2 % (36-46); Hemoglobin 14.8 g/dL (12.0-16.0); Lymphocytes Absolute Auto 1600 /uL (1100-4500); Lymphocytes Percent Auto 36.5 % (25-40); Mean Corpuscular HGB Conc 33.4 % (30-36); Mean Corpuscular Hemoglobin 30.9 PG (26-34); Mean Corpuscular Volume 92.5 fL (80-100); Monocytes Absolute Auto 300 /uL (0-900); Monocytes Percent Auto 7.7 % (3-14); Neutrophils Absolute Auto 2300 /uL (1500-7000); Neutrophils Percent Auto 51.6 % (50-75); Platelet Count 205 X10^3/uL (150-400); Red Blood Cell Count 4.77 X10^6/uL (4.0-5.2); Red Cell Distribution Width 12.8 % (11.6-14.8); White Blood Cell Count 4.4 X10^3/uL (4.5-11.0)
[2024-07-10 11:00] LABS: Alanine Aminotransferase 28 IU/L (<35); Albumin 4.9 g/dL (3.5-5.0); Albumin Globulin Ratio 1.6 (1.0-2.8); Alkaline Phosphatase 52 U/L (38-126); Aspartate Aminotransferase 34 IU/L (14-36); BUN Creatinine Ratio 20.3 (6-22); Bilirubin Total 0.7 mg/dL (0.2-1.3); Blood Urea Nitrogen 16 mg/dL (7-17); Calcium 9.4 mg/dL (8.4-10.2); Carbon Dioxide 27 mmol/L (22-32); Chloride 103 mmol/L (98-107); Cholesterol 236 mg/dL (140-199); Estimated Glomerular Filt Rate > 60 mL/min (>60); Globulin 3.1 g/dL (1.7-4.1); Glucose 97 mg/dL (70-100); HDL Cholesterol 87 mg/dL (40-60); HEMOLYSIS < 15 (0-50); LDL Cholesterol Calculated 138 mg/dL (<100); Potassium 4.8 mmol/L (3.4-5.1); Sodium 130 mmol/L (137-145); Triglycerides 54 mg/dL (35-150)
[2024-07-10 11:01] LABS: Hemoglobin A1C% w Est Avg Glu 5.5 % (4.0-6.0)
[2024-07-10 11:32] LABS: Thyroid Stimulating Hormone 1.61 uIU/mL (0.47-4.68)
[2024-07-10 11:33] LABS: Ferritin 59 ng/mL (6-137)
== END ==
LOC: LAB 10:08
PROVIDERS: PCP Family Medicine; Referring Provider Family Medicine; Visit Provider Family Medicine
DX: Z13.9 Encounter for screening, unspecified (principal)
CPT/HCPCS: 36415; 80053; 80061; 82306; 82728; 83036; 84443; 85025

== ENCOUNTER → 2024-07-15 14:43 | Outpatient (CLI) | payer OTHER, SELFPAY ==
--- NOTE | 2024-07-15 14:46 | DI.RAD.S_ITS ---
PROCEDURE: XR CERVICAL SPINE 2V OR 3V INDICATIONS: pain TECHNIQUE: 3 view(s) of the cervical spine were acquired. COMPARISON: None. FINDINGS: Bones: No fractures or dislocations to the C7 level. The lateral masses of C1 appear intact on the odontoid view. No suspicious bony lesions. Straightening of the cervical lordosis. Soft tissues: No prevertebral soft tissue swelling. The intervertebral disc heights are preserved. IMPRESSION: No acute radiographic abnormality of the cervical spine. Dictated by: Alan Jesus M.D. on 07/16/2024 at 13:30 Approved by: Alan Jesus M.D. on 07/16/2024 at 13:31
--- NOTE | 2024-07-15 14:46 | DI.RAD.S_ITS ---
PROCEDURE: XR SHOULDER LT MIN 2V INDICATIONS: pain TECHNIQUE: 3 views of the shoulder were acquired. COMPARISON: None. FINDINGS: No acute fracture or dislocation. The glenohumeral and acromioclavicular joints are preserved. The visualized left hemithorax is within normal limits. IMPRESSION: No acute fracture or dislocation of the left shoulder. Dictated by: Alan Jesus M.D. on 07/16/2024 at 13:31 Approved by: Alan Jesus M.D. on 07/16/2024 at 13:35
--- NOTE | 2024-07-15 14:46 | DI.RAD.S_ITS ---
PROCEDURE: XR SHOULDER RT MIN 2V INDICATIONS: pain TECHNIQUE: 3 views of the shoulder were acquired. COMPARISON: [facility], CR, XR SHOULDER LT MIN 2V, 07/15/2024, 14:55. FINDINGS: No acute fracture or dislocation. The acromioclavicular and glenohumeral joints are preserved. The visualized right hemithorax is within normal limits. IMPRESSION: No acute fracture or dislocation of the right shoulder. Dictated by: Alan Jesus M.D. on 07/16/2024 at 13:35 Approved by: Alan Jesus M.D. on 07/16/2024 at 13:36
== END ==
PROVIDERS: PCP Family Medicine; Referring Provider Family Medicine; Visit Provider Family Medicine
DX: R52 Pain, unspecified (principal)
CPT/HCPCS: 72040; 73030

== ENCOUNTER → 2024-08-14 09:22 | Outpatient (CLI) | payer OTHER, SELFPAY ==
--- NOTE | 2024-08-14 09:23 | DI.US.S_ITS ---
PROCEDURE: US ABDOMEN COMPLETE INDICATIONS: ruq abd pain TECHNIQUE: Real-time scanning was performed of the abdominal and retroperitoneal organs, with image documentation. COMPARISON: [facility], US, US ABDOMEN COMPLETE, 06/08/2022, 16:17. [facility], US, US ABDOMEN COMPLETE, 09/13/2023, 14:54. FINDINGS: The Liver: The liver demonstrates normal size. The liver demonstrates generalized mildly increased echogenicity. This decreases ultrasound sensitivity for detection of hepatic masses. The main portal vein demonstrates normal size and demonstrates normal appearing, hepatopetal flow. Gallbladder: No findings of gallstones or sludge are seen. The gallbladder wall is not thickened, measuring 3 mm or less. No gallbladder wall polyps are again seen, measuring up to 5 mm anteriorly and 5 mm posteriorly. No specific pericholecystic fluid is seen. The sonographic Zamora sign is negative. Biliary ducts: Intrahepatic bile ducts are non-dilated. Extrahepatic bile duct caliber measures 5 mm. Normal is 6-7 mm or less in diameter, or 10 mm or less post-cholecystectomy. Pancreas: Visualized portions of the pancreas are sonographically normal. Spleen: Spleen is normal in size and homogeneous in echotexture. Kidneys: Kidneys are normal in size and echotexture. Right kidney measures 10 cm long; left kidney measures 11.2 cm long. No hydronephrosis or nephrolithiasis. No solid masses. Medullary sponge kidney is again seen. Aorta: Visualized aorta is normal in caliber at less than 3 cm. Iliacs: Proximal common iliac arteries are normal in caliber at less than 2.5 cm. IVC: Intrahepatic inferior vena cava is patent. Miscellaneous: No free abdominal fluid. IMPRESSION: Gallbladder wall polyps are again seen, which demonstrate mild interval growth since the prior ultrasound examination. Medullary sponge kidney again seen. Dictated by: Josesito Arevalo M.D. on 08/14/2024 at 12:34 Approved by: Josesito Arevalo M.D. on 08/14/2024 at 12:36
== END ==
LOC: US 09:23
PROVIDERS: PCP Family Medicine; Referring Provider Family Medicine; Visit Provider Family Medicine
DX: K82.4 Cholesterolosis of gallbladder (principal); Q61.5 Medullary cystic kidney; R10.11 Right upper quadrant pain
CPT/HCPCS: 76700

== ENCOUNTER 2024-09-17 10:03 | Day surgery (SDC) | payer OTHER, SELFPAY ==
[2024-09-17] VITALS (8 sets, daily range): BP systolic 78–112; BP diastolic 41–81; PULSE 55–78; RESP 13–16; TEMP 36.2–36.5; O2SAT 96–100
--- NOTE | 2024-09-17 11:00 | P.HP_ITS ---
History of Present Illness History of Present Illness Date Patient Seen: 09/17/24 Time Patient Seen: 11:00 Chief complaint: SDC Narrative: Marilee is a 44-year-old woman who presents for a screening colonoscopy. She has never had a colonoscopy before. Her mother did of colon cancer in her 60s. [facility] Medical History (Updated 09/17/24 @ 11:01 by Shaheed Byrd MD) Medullary sponge kidney Spontaneous vaginal delivery Anxiety (2014) Tinnitus (2015) Hearing loss (2015) Genital warts (1999) Chlamydia (1998) Gestational diabetes (2008) Surgical History No history of previous surgery (06/25/16) Family History Mother Cancer Diabetes mellitus Colon cancer metastasized to liver Grandfather Heart attack Grandmother History of blood clot in brain Social History Smoking Status: Never smoker alcohol intake: never Meds Home Medications and Allergies Allergies Allergy/AdvReac Type Severity Reaction Status Date / Time No Known Allergies Allergy Uncoded 09/17/24 10:39 Exam Vital Signs (past 8 hours): - 09/17/24 10:24 Temperature 97.7 F Pulse Rate 74 Respiratory Rate 16 Blood Pressure 112/81 Pulse Oximetry 100 Oxygen Delivery Method Room Air Oxygen Delivery Method Room Air Const General: healthy appearing Resp Effort & Inspection: normal respiratory effort Assessment & Plan Assessment and plan (1) Family history of colon cancer: Status: Acute Plan Colonoscopy Time-Based Coding :: [TOTAL MINUTES] spent with patient and on the chart (including review of chart, obtaining history, exam, reviewing outside data, placing orders, documenting exam and treatment plan, and counseling patient) on [DATE]. [employer] Document charge(s): No
--- NOTE | 2024-09-17 11:25 | P.OP.COLON_ITS ---
Operative Date/Time/Diagnoses Date of procedure: 09/17/24 Time of procedure: 11:25 Pre-op diagnosis: Colon cancer screening and family history of colon cancer Post-op diagnosis: same Procedure & Clinicians Study performed: Colonoscopy Same procedure as scheduled: Yes Surgeon: Shaheed Byrd Procedure Notes Procedure in detail: Surgeon: Shaheed Byrd MD Anesthesia: Max Lugo MD Procedure: The patient was brought to the endoscopy suite, placed in left lateral decubitus position. The patient was connected to monitoring devices. A time-out was performed. Sedation was administered. Once the patient was adequately sedated, a digital rectal exam was performed and was normal. The sc ope was then inserted and advanced to the cecum where the appendiceal orifice was identified and photographed. The scope was then slowly withdrawn over greater than 6 minutes. The mucosa was thoroughly inspected. No polyps or other abnormalities were found. The scope was retroflexed in the rectum. The scope was straightened and removed. The patient was awakened and brought to recovery. Scope withdrawal time: 6 minutes Sedation time: 11 minutes EBL: 0 Findings: Normal colon Post-procedure Recommendations: Colonoscopy in 5 years Disposition: PACU
== END 2024-09-17 11:52 | disposition home or self-care (01) ==
PROVIDERS: PCP Family Medicine; Referring Provider Family Medicine; Visit Provider Surgery
PROC: 0DJD8ZZ Inspection of Lower Intestinal Tract, Via Natural or Artificial Opening Endoscopic (ICD-10-PCS; CPT 45378; principal; 2024-09-17 11:15)
DX: Z12.11 Encounter for screening for malignant neoplasm of colon (principal); Z80.0 Family history of malignant neoplasm of digestive organs
CPT/HCPCS: 45378; J2704